=== PATIENT | female | born 1955 | race African-American/Black ===

== ENCOUNTER 2022-03-29 07:14 | Inpatient (IN) | payer MEDICARE ==
[~2022-03-29] VITALS: Ht 172.7 cm; Wt 84.4 kg
[2022-03-29 07:20] VITALS: BP_SYST 248
[2022-03-29] MEDS ORDERED: cloNIDine HCL 0.1 MG TABLET PO ONE (07:45)
[2022-03-29 07:52] LABS: BILIRUBIN,URINE NEGATIVE (NEGATIVE); BLOOD, URINE TRACE (NEGATIVE); CLARITY/URINE CLEAR (CLEAR); COLOR,URINE YELLOW (YELLOW); GLUCOSE,URINE TRACE (NEGATIVE); KETONES,URINE NEGATIVE (NEGATIVE); LEUKOCYTE ESTERASE ,URINE NEGATIVE (NEGATIVE); NITRITE, URINE NEGATIVE (NEGATIVE); PROTEIN URINE 3+ (NEGATIVE); UROBILINOGEN,URINE 0.2 (0.2-1.0)
[2022-03-29] MEDS ORDERED: ONDANSETRON HCL 4 MG/2 ML VIAL IVP ONE (08:00)
[2022-03-29 08:13] LABS: BACTERIA,URINE None Seen /HPF (None Seen)
[2022-03-29 08:23] LABS: BASOPHILS % (AUTO) 0.3 % (0.0-2.0); EOSINOPHILS # (AUTO) 0.1 K/uL (0.0-0.4); EOSINOPHILS % (AUTO) 0.8 % (0.0-4.0); HEMATOCRIT 33.2 % (36-48); HEMOGLOBIN 11.2 g/dL (12.0-16.0); LYMPHOCYTES # (AUTO) 1.2 K/uL (1.0-5.5); LYMPHOCYTES % (AUTO) 12.5 % (20.5-51.5); MEAN CORPUSCULAR HEMOGLOBIN 30 pg (27-31); MEAN CORPUSCULAR HGB CONC 34 % (32-36); MEAN CORPUSCULAR VOLUME 90 fL (79.0-98.0); MONOCYTES # (AUTO) 0.5 K/uL (0.0-1.0); NEUTROPHILS # (AUTO) 7.6 K/uL (1.8-7.7); NEUTROPHILS % (AUTO) 81.4 % (40.0-70.0); PLATELET COUNT (AUTO) 188 K/uL (130-430); RED BLOOD CELL COUNT(AUTO) 3.71 MIL/uL (4.2-6.2); RED CELL DISTRIBUTION WIDTH 19.9 % (9.0-15.0); WHITE BLOOD COUNT (AUTO) 9.4 K/uL (4.8-10.8)
[2022-03-29 08:50] LABS: ANION GAP 8 (5-15); CALCIUM 8.2 mg/dL (8.4-11.0); CHLORIDE 101 mmol/L (98-107); GLUCOSE 147 mg/dL (70-99); POTASSIUM 5.6 mmol/L (3.5-5.1); UREA NITROGEN, BLOOD 38 mg/dL (8-21)
[2022-03-29 08:57] LABS: GFR AFRICAN AMERICAN 7 mL/min (>90)
[2022-03-29 09:00] LABS: ALANINE AMINOTRANSFERASE 11 U/L (12-78); ALBUMIN 3.3 g/dL (3.4-4.8); ASPARTATE AMINOTRANSFERASE 13 U/L (10-37); TOTAL BILIRUBIN 0.5 mg/dL (0.0-1.0)
[2022-03-29 09:01] LABS: INR 0.9 (0.8-1.2); PROTHROMBIN TIME 9.9 SECS (9.5-12.5)
[2022-03-29] MEDS ORDERED: hydrALAZINE HCL 20 MG/ML VIAL IVP ONE (09:30)
[2022-03-29] MEDS ORDERED: SODIUM ZIRCONIUM CYCLOSILICATE 10 GM POWD.PACK PO ONE (09:45)
[2022-03-29] MEDS ORDERED: HYDR100T25 PO (10:00)
[2022-03-29] MEDS ORDERED: CICL6.1H5 NS (10:00)
[2022-03-29] MEDS ORDERED: LIP40 PO (10:00)
[2022-03-29] MEDS ORDERED: CALC667T6 PO (10:00)
[2022-03-29] MEDS ORDERED: TOP25 PO (10:00)
[2022-03-29] MEDS ORDERED: HYDROcodone/ACETAMIN 5-325 MG TAB (NORCO/ VICODIN) PO PRN (11:30)
[2022-03-29] MEDS ORDERED: HYDROcodone/ACETAMIN 10-325 MG TAB PO PRN (11:30)
[2022-03-29] MEDS ORDERED: ACETAMINOPHEN 325 MG TABLET PO PRN ×2 (11:30→11:45)
[2022-03-29] MEDS ORDERED: IPRATROPIUM BROM 0.5 MG/2.5 ML VIAL.NEB (ATROVENT) INH PRN (11:30)
[2022-03-29] MEDS ORDERED: ALBUTEROL SULFATE 0.083% 2.5 MG/3 ML VIAL.NEB INH PRN (11:30)
[2022-03-29] MEDS ORDERED: ONDANSETRON HCL 4 MG/2 ML VIAL IVP PRN (11:30)
[2022-03-29] MEDS ORDERED: NALOXONE HCL 0.4 MG/ML AMP (NARCAN) IVP PRN ×2 (11:30)
[2022-03-29 12:00] VITALS: BP_SYST 188
[2022-03-29] MEDS: hydrALAZINE HCL 25 MG TABLET PO SCH ×2 (14:00→21:03)
[2022-03-29] MEDS: NORMAL SALINE 5 ML DISP.SYRIN IVF SCH ×4 (14:00→21:03)
[2022-03-29] MEDS: CALCIUM ACETATE 667 MG CAP PO SCH ×2 (15:00→21:02)
[2022-03-29 15:26] VITALS: BP_SYST 165
[2022-03-29 15:30] VITALS: BP_SYST 165
[2022-03-29 19:30] VITALS: BP_SYST 188
[2022-03-29] MEDS ORDERED: TOPIRAMATE 25 MG TABLET(TOPAMAX) PO SCH (21:00)
[2022-03-29] MEDS ORDERED: CICLESONIDE NS SCH (21:00)
[2022-03-29] MEDS: TOPIRAMATE 25 MG TABLET(TOPAMAX) PO SCH (21:02)
[2022-03-29] MEDS: ATORVASTATIN 20 MG TABLET PO SCH (21:03)
[2022-03-30] VITALS (7 sets, daily range): BP systolic 168–200
[2022-03-30] MEDS ORDERED: hydrALAZINE HCL 25 MG TABLET PO ONE (00:45)
[2022-03-30] MEDS: LORazepam 2 MG/ML VIAL IVP PRN ×2 (02:53→21:55)
[2022-03-30] MEDS: NORMAL SALINE 5 ML DISP.SYRIN IVF SCH ×4 (03:42→21:21)
[2022-03-30] MEDS: hydrALAZINE HCL 25 MG TABLET PO SCH ×3 (05:57→21:21)
[2022-03-30 07:00] LABS: BASOPHILS % (AUTO) 0.4 % (0.0-2.0); EOSINOPHILS # (AUTO) 0.1 K/uL (0.0-0.4); EOSINOPHILS % (AUTO) 1.1 % (0.0-4.0); HEMATOCRIT 31.6 % (36-48); HEMOGLOBIN 10.6 g/dL (12.0-16.0); LYMPHOCYTES % (AUTO) 26.5 % (20.5-51.5); MEAN CORPUSCULAR HEMOGLOBIN 30 pg (27-31); MEAN CORPUSCULAR HGB CONC 34 % (32-36); MEAN CORPUSCULAR VOLUME 90 fL (79.0-98.0); MONOCYTES # (AUTO) 0.5 K/uL (0.0-1.0); MONOCYTES % (AUTO) 6.2 % (1.7-9.3); NEUTROPHILS # (AUTO) 4.9 K/uL (1.8-7.7); NEUTROPHILS % (AUTO) 65.8 % (40.0-70.0); PLATELET COUNT (AUTO) 201 K/uL (130-430); RED CELL DISTRIBUTION WIDTH 19.8 % (9.0-15.0); WHITE BLOOD COUNT (AUTO) 7.5 K/uL (4.8-10.8)
[2022-03-30] MEDS: TOPIRAMATE 25 MG TABLET(TOPAMAX) PO SCH ×2 (08:46→21:21)
[2022-03-30] MEDS: CALCIUM ACETATE 667 MG CAP PO SCH ×3 (08:46→21:21)
[2022-03-30 08:52] LABS: ALBUMIN 3.2 g/dL (3.4-4.8); CALCIUM 8.7 mg/dL (8.4-11.0); CREATININE 5.75 mg/dL (0.55-1.30); TOTAL BILIRUBIN 0.6 mg/dL (0.0-1.0)
[2022-03-30] MEDS ORDERED: PATIENT'S OWN EENT SCH (09:00)
[2022-03-30] MEDS: cloNIDine HCL 0.1 MG TABLET PO PRN ×2 (10:16→17:31)
[2022-03-30] MEDS ORDERED: NA PHOS 15 MM in NS 250 ML IV ONE (11:00)
[2022-03-30] MEDS ORDERED: CICL6.1H5 INH (12:44)
[2022-03-30] MEDS: PATIENT'S OWN EENT INH SCH (21:00)
[2022-03-30] MEDS: ATORVASTATIN 20 MG TABLET PO SCH (21:21)
[2022-03-30] MEDS: cloNIDine HCL 0.1 MG TABLET PO SCH (22:15)
[2022-03-31] VITALS: BP_SYST 167
[2022-03-31 04:31] LABS: BILIRUBIN,URINE NEGATIVE (NEGATIVE); BLOOD, URINE 1+ (NEGATIVE); CLARITY/URINE TURBID (CLEAR); COLOR,URINE YELLOW (YELLOW); GLUCOSE,URINE NEGATIVE (NEGATIVE); KETONES,URINE NEGATIVE (NEGATIVE); LEUKOCYTE ESTERASE ,URINE 3+ (NEGATIVE); NITRITE, URINE POSITIVE (NEGATIVE); PROTEIN URINE 3+ (NEGATIVE); UROBILINOGEN,URINE 0.2 (0.2-1.0)
[2022-03-31 04:38] LABS: WBC,URINE 80-100 /HPF (0-3)
[2022-03-31 04:39] LABS: BACTERIA,URINE MANY /HPF (None Seen); MUCUS,URINE 1+ /LPF (None Seen)
[2022-03-31] MEDS: hydrALAZINE HCL 25 MG TABLET PO SCH ×3 (05:20→22:11)
[2022-03-31] MEDS: NORMAL SALINE 5 ML DISP.SYRIN IVF SCH ×3 (05:20→22:12)
[2022-03-31 07:33] LABS: BASOPHILS % (AUTO) 0.5 % (0.0-2.0); EOSINOPHILS # (AUTO) 0.1 K/uL (0.0-0.4); EOSINOPHILS % (AUTO) 1.4 % (0.0-4.0); HEMATOCRIT 28.7 % (36-48); HEMOGLOBIN 9.7 g/dL (12.0-16.0); LYMPHOCYTES # (AUTO) 1.8 K/uL (1.0-5.5); LYMPHOCYTES % (AUTO) 26.6 % (20.5-51.5); MEAN CORPUSCULAR HEMOGLOBIN 30 pg (27-31); MEAN CORPUSCULAR HGB CONC 34 % (32-36); MEAN CORPUSCULAR VOLUME 90 fL (79.0-98.0); MONOCYTES # (AUTO) 0.4 K/uL (0.0-1.0); MONOCYTES % (AUTO) 6.5 % (1.7-9.3); NEUTROPHILS # (AUTO) 4.4 K/uL (1.8-7.7); PLATELET COUNT (AUTO) 194 K/uL (130-430); RED CELL DISTRIBUTION WIDTH 20.2 % (9.0-15.0); WHITE BLOOD COUNT (AUTO) 6.8 K/uL (4.8-10.8)
[2022-03-31 08:34] LABS: CALCIUM 8.2 mg/dL (8.4-11.0); PHOSPHORUS 2.9 mg/dL (2.7-4.5); POTASSIUM 4.1 mmol/L (3.5-5.1)
[2022-03-31] MEDS: PATIENT'S OWN EENT INH SCH ×2 (09:00→22:12)
[2022-03-31] MEDS: cloNIDine HCL 0.1 MG TABLET PO SCH ×3 (09:00→22:10)
[2022-03-31 09:05] VITALS: BP_SYST 195
[2022-03-31] MEDS: CALCIUM ACETATE 667 MG CAP PO SCH ×3 (09:10→22:11)
[2022-03-31] MEDS: TOPIRAMATE 25 MG TABLET(TOPAMAX) PO SCH ×2 (09:10→22:16)
[2022-03-31 09:24] LABS: CREATININE 7.57 mg/dL (0.55-1.30)
[2022-03-31] MEDS: cloNIDine HCL 0.1 MG TABLET PO PRN (11:20)
[2022-03-31] MEDS ORDERED: hydrALAZINE HCL 20 MG/ML VIAL IVP ONE (11:45)
[2022-03-31 12:00] VITALS: BP_SYST 187
[2022-03-31] MEDS ORDERED: NIFEDIPINE 60 MG TABLET.SA (PROCARDIA XL 60 MG) PO SCH (12:15)
[2022-03-31] MEDS ORDERED: NIFEdipine 30 MG TAB.ER.24 PO ONE (12:30)
[2022-03-31] MEDS: ATORVASTATIN 20 MG TABLET PO SCH (22:11)
[2022-04-01] VITALS: BP_SYST 179
[2022-04-01] MEDS: hydrALAZINE HCL 25 MG TABLET PO SCH ×3 (06:53→22:00)
[2022-04-01] MEDS: NORMAL SALINE 5 ML DISP.SYRIN IVF SCH ×3 (06:55→22:00)
[2022-04-01 07:40] LABS: BASOPHILS % (AUTO) 0.7 % (0.0-2.0); EOSINOPHILS # (AUTO) 0.2 K/uL (0.0-0.4); EOSINOPHILS % (AUTO) 3.5 % (0.0-4.0); HEMATOCRIT 30.1 % (36-48); HEMOGLOBIN 10.2 g/dL (12.0-16.0); LYMPHOCYTES # (AUTO) 1.3 K/uL (1.0-5.5); LYMPHOCYTES % (AUTO) 25.7 % (20.5-51.5); MEAN CORPUSCULAR HEMOGLOBIN 31 pg (27-31); MEAN CORPUSCULAR HGB CONC 34 % (32-36); MEAN CORPUSCULAR VOLUME 90 fL (79.0-98.0); MONOCYTES # (AUTO) 0.5 K/uL (0.0-1.0); MONOCYTES % (AUTO) 9.7 % (1.7-9.3); NEUTROPHILS # (AUTO) 3.1 K/uL (1.8-7.7); NEUTROPHILS % (AUTO) 60.4 % (40.0-70.0); PLATELET COUNT (AUTO) 192 K/uL (130-430); RED BLOOD CELL COUNT(AUTO) 3.34 MIL/uL (4.2-6.2); RED CELL DISTRIBUTION WIDTH 19.8 % (9.0-15.0); WHITE BLOOD COUNT (AUTO) 5.1 K/uL (4.8-10.8)
[2022-04-01 08:00] VITALS: BP_SYST 145
[2022-04-01] MEDS: NIFEdipine 30 MG TAB.ER.24 PO SCH (09:56)
[2022-04-01] MEDS: PATIENT'S OWN EENT INH SCH ×2 (09:57→21:00)
[2022-04-01] MEDS: CALCIUM ACETATE 667 MG CAP PO SCH ×3 (09:58→21:00)
[2022-04-01] MEDS: TOPIRAMATE 25 MG TABLET(TOPAMAX) PO SCH ×2 (09:58→21:00)
[2022-04-01] MEDS: cloNIDine HCL 0.1 MG TABLET PO SCH ×2 (09:58→21:00)
[2022-04-01 11:28] VITALS: BP_SYST 177
[2022-04-01] MEDS: cloNIDine HCL 0.1 MG TABLET PO PRN (12:33)
[2022-04-01 16:00] VITALS: BP_SYST 140
[2022-04-01 20:00] VITALS: BP_SYST 126
[2022-04-01 20:41] LABS: CALCIUM 8.6 mg/dL (8.4-11.0); CREATININE 6.37 mg/dL (0.55-1.30); PHOSPHORUS 2.8 mg/dL (2.7-4.5); POTASSIUM 4.2 mmol/L (3.5-5.1); TOTAL BILIRUBIN 0.5 mg/dL (0.0-1.0)
[2022-04-01] MEDS: ATORVASTATIN 20 MG TABLET PO SCH (21:00)
[2022-04-02] VITALS (7 sets, daily range): BP systolic 109–174
[2022-04-02] MEDS: NORMAL SALINE 5 ML DISP.SYRIN IVF SCH ×4 (06:00→23:00)
[2022-04-02] MEDS: PATIENT'S OWN EENT INH SCH ×2 (09:00→21:33)
[2022-04-02] MEDS: NIFEdipine 30 MG TAB.ER.24 PO SCH ×2 (09:00→11:41)
[2022-04-02] MEDS: cloNIDine HCL 0.1 MG TABLET PO SCH ×3 (09:00→21:22)
[2022-04-02 09:05] LABS: CALCIUM 8.6 mg/dL (8.4-11.0); PHOSPHORUS 2.6 mg/dL (2.7-4.5)
[2022-04-02 09:12] LABS: CREATININE 7.8 mg/dL (0.55-1.30)
[2022-04-02] MEDS: CALCIUM ACETATE 667 MG CAP PO SCH ×3 (09:57→21:24)
[2022-04-02] MEDS: TOPIRAMATE 25 MG TABLET(TOPAMAX) PO SCH ×2 (09:58→21:00)
[2022-04-02 14:32] LABS: BASOPHILS % (AUTO) 0.7 % (0.0-2.0); EOSINOPHILS # (AUTO) 0.2 K/uL (0.0-0.4); EOSINOPHILS % (AUTO) 3.3 % (0.0-4.0); HEMATOCRIT 31.3 % (36-48); HEMOGLOBIN 10.7 g/dL (12.0-16.0); LYMPHOCYTES # (AUTO) 1.5 K/uL (1.0-5.5); MEAN CORPUSCULAR HEMOGLOBIN 31 pg (27-31); MEAN CORPUSCULAR HGB CONC 34 % (32-36); MEAN CORPUSCULAR VOLUME 90 fL (79.0-98.0); MONOCYTES # (AUTO) 0.5 K/uL (0.0-1.0); PLATELET COUNT (AUTO) 224 K/uL (130-430); RED BLOOD CELL COUNT(AUTO) 3.49 MIL/uL (4.2-6.2); RED CELL DISTRIBUTION WIDTH 20.9 % (9.0-15.0); WHITE BLOOD COUNT (AUTO) 5.2 K/uL (4.8-10.8)
[2022-04-02] MEDS: cloNIDine HCL 0.1 MG TABLET PO PRN (16:22)
[2022-04-02] MEDS: ATORVASTATIN 20 MG TABLET PO SCH (21:23)
[2022-04-02] MEDS: hydrALAZINE HCL 25 MG TABLET PO SCH (21:31)
[2022-04-03] MEDS: hydrALAZINE HCL 25 MG TABLET PO SCH ×3 (05:17→21:25)
[2022-04-03] MEDS: NIFEdipine 30 MG TAB.ER.24 PO SCH (08:37)
[2022-04-03] MEDS: cloNIDine HCL 0.1 MG TABLET PO SCH ×2 (08:37→21:27)
[2022-04-03] MEDS: PATIENT'S OWN EENT INH SCH ×2 (08:37→21:30)
[2022-04-03 08:38] VITALS: BP_SYST 160
[2022-04-03] MEDS: CALCIUM ACETATE 667 MG CAP PO SCH ×3 (08:38→21:26)
[2022-04-03] MEDS: cefTRIAXone 1 GM in D5W 50 ML IV SCH (11:45)
[2022-04-03 11:46] VITALS: BP_SYST 162
[2022-04-03] MEDS: NORMAL SALINE 5 ML DISP.SYRIN IVF SCH ×2 (14:00→21:29)
[2022-04-03 16:45] VITALS: BP_SYST 175
[2022-04-03] MEDS: cloNIDine HCL 0.1 MG TABLET PO PRN (17:34)
[2022-04-03] MEDS: ATORVASTATIN 20 MG TABLET PO SCH (21:23)
[2022-04-03] MEDS: TOPIRAMATE 100 MG TABLET(Topamax) PO SCH (21:29)
[2022-04-04] VITALS: BP_SYST 143
[2022-04-04] MEDS: hydrALAZINE HCL 25 MG TABLET PO SCH ×3 (05:40→22:22)
[2022-04-04] MEDS: NORMAL SALINE 5 ML DISP.SYRIN IVF SCH ×3 (05:41→22:25)
[2022-04-04 06:00] VITALS: BP_SYST 168
[2022-04-04 07:34] LABS: BASOPHILS % (AUTO) 0.4 % (0.0-2.0); EOSINOPHILS # (AUTO) 0.2 K/uL (0.0-0.4); EOSINOPHILS % (AUTO) 3.5 % (0.0-4.0); HEMATOCRIT 31.2 % (36-48); HEMOGLOBIN 10.6 g/dL (12.0-16.0); LYMPHOCYTES # (AUTO) 1.8 K/uL (1.0-5.5); LYMPHOCYTES % (AUTO) 27.4 % (20.5-51.5); MEAN CORPUSCULAR HEMOGLOBIN 31 pg (27-31); MEAN CORPUSCULAR HGB CONC 34 % (32-36); MEAN CORPUSCULAR VOLUME 90 fL (79.0-98.0); MONOCYTES # (AUTO) 0.5 K/uL (0.0-1.0); MONOCYTES % (AUTO) 7.6 % (1.7-9.3); NEUTROPHILS # (AUTO) 4.1 K/uL (1.8-7.7); NEUTROPHILS % (AUTO) 61.1 % (40.0-70.0); PLATELET COUNT (AUTO) 201 K/uL (130-430); RED BLOOD CELL COUNT(AUTO) 3.47 MIL/uL (4.2-6.2); RED CELL DISTRIBUTION WIDTH 20.5 % (9.0-15.0); WHITE BLOOD COUNT (AUTO) 6.7 K/uL (4.8-10.8)
[2022-04-04 07:38] VITALS: BP_SYST 143
[2022-04-04 08:54] VITALS: BP_SYST 142
[2022-04-04] MEDS: NIFEdipine 30 MG TAB.ER.24 PO SCH (08:57)
[2022-04-04] MEDS: CALCIUM ACETATE 667 MG CAP PO SCH ×3 (08:57→22:22)
[2022-04-04] MEDS: cloNIDine HCL 0.1 MG TABLET PO SCH ×2 (08:58→22:23)
[2022-04-04] MEDS: TOPIRAMATE 100 MG TABLET(Topamax) PO SCH ×2 (08:58→21:00)
[2022-04-04] MEDS: PATIENT'S OWN EENT INH SCH ×2 (09:03→22:26)
[2022-04-04] MEDS ORDERED: CLONIDINE HCL PO (09:41)
[2022-04-04] MEDS ORDERED: NIFEdipine PO (09:41)
[2022-04-04 09:44] LABS: CALCIUM 8.6 mg/dL (8.4-11.0); POTASSIUM 4.4 mmol/L (3.5-5.1)
[2022-04-04 09:50] LABS: CREATININE 7.86 mg/dL (0.55-1.30)
[2022-04-04 09:51] LABS: ALBUMIN 2.8 g/dL (3.4-4.8); PHOSPHORUS 2.8 mg/dL (2.7-4.5); TOTAL BILIRUBIN 0.4 mg/dL (0.0-1.0)
[2022-04-04 11:24] LABS: ERYTHROCYTE SEDIMENTATION RATE 49 MM/HR (0-20)
[2022-04-04] MEDS: cefTRIAXone 1 GM in D5W 50 ML IV SCH (11:32)
[2022-04-04 17:07] VITALS: BP_SYST 151
[2022-04-04 20:00] VITALS: BP_SYST 167
[2022-04-04] MEDS: ATORVASTATIN 20 MG TABLET PO SCH (22:24)
[2022-04-05] VITALS: BP_SYST 136
[2022-04-05] MEDS: hydrALAZINE HCL 25 MG TABLET PO SCH ×2 (06:11→18:01)
[2022-04-05] MEDS: NORMAL SALINE 5 ML DISP.SYRIN IVF SCH ×2 (06:12→14:00)
[2022-04-05 06:47] LABS: BASOPHILS % (AUTO) 0.3 % (0.0-2.0); EOSINOPHILS # (AUTO) 0.2 K/uL (0.0-0.4); EOSINOPHILS % (AUTO) 2.2 % (0.0-4.0); HEMATOCRIT 32.5 % (36-48); LYMPHOCYTES % (AUTO) 27.7 % (20.5-51.5); MEAN CORPUSCULAR HEMOGLOBIN 31 pg (27-31); MEAN CORPUSCULAR HGB CONC 34 % (32-36); MEAN CORPUSCULAR VOLUME 90 fL (79.0-98.0); MONOCYTES # (AUTO) 0.6 K/uL (0.0-1.0); MONOCYTES % (AUTO) 8.2 % (1.7-9.3); NEUTROPHILS # (AUTO) 4.4 K/uL (1.8-7.7); NEUTROPHILS % (AUTO) 61.6 % (40.0-70.0); PLATELET COUNT (AUTO) 198 K/uL (130-430); RED BLOOD CELL COUNT(AUTO) 3.62 MIL/uL (4.2-6.2); RED CELL DISTRIBUTION WIDTH 20.5 % (9.0-15.0); WHITE BLOOD COUNT (AUTO) 7.1 K/uL (4.8-10.8)
[2022-04-05 07:09] LABS: C-REACTIVE PROTEIN QUANT 2.4 mg/dL (0-0.5); CALCIUM 8.4 mg/dL (8.4-11.0); PHOSPHORUS 2.8 mg/dL (2.7-4.5); POTASSIUM 4.2 mmol/L (3.5-5.1)
[2022-04-05 07:32] LABS: ERYTHROCYTE SEDIMENTATION RATE 54 MM/HR (0-20)
[2022-04-05 08:00] VITALS: BP_SYST 127
[2022-04-05 08:23] LABS: CREATININE 7.54 mg/dL (0.55-1.30)
[2022-04-05] MEDS: cloNIDine HCL 0.1 MG TABLET PO SCH (09:00)
[2022-04-05] MEDS: NIFEdipine 30 MG TAB.ER.24 PO SCH (09:00)
[2022-04-05] MEDS: TOPIRAMATE 100 MG TABLET(Topamax) PO SCH (09:37)
[2022-04-05] MEDS: CALCIUM ACETATE 667 MG CAP PO SCH ×2 (09:37→18:00)
[2022-04-05] MEDS: PATIENT'S OWN EENT INH SCH (09:38)
[2022-04-05] MEDS ORDERED: CLONIDINE HCL PO (09:38)
[2022-04-05] MEDS ORDERED: NIFEdipine PO (09:38)
[2022-04-05 11:47] VITALS: BP_SYST 139
[2022-04-05] MEDS: cefTRIAXone 1 GM in D5W 50 ML IV SCH (12:18)
[2022-04-05 17:19] VITALS: BP_SYST 133
== END 2022-04-05 18:25 | disposition home health service (06) | DRG 871 ==
LOC: SED 07:14 → STU 10:12
PROVIDERS: ADMIT Preventive Medicine Preventive Medicine/Occupational Environmental Medicine; ATTEND Preventive Medicine Preventive Medicine/Occupational Environmental Medicine
DX: A41.9 Sepsis, unspecified organism (principal); N18.6 End stage renal disease; I12.0 Hypertensive chronic kidney disease with stage 5 chronic kidney disease or end stage renal disease; E87.1 Hypo-osmolality and hyponatremia; G40.209 Localization-related (focal) (partial) symptomatic epilepsy and epileptic syndromes with complex partial seizures, not intractable, without status epilepticus; N39.0 Urinary tract infection, site not specified; D63.8 Anemia in other chronic diseases classified elsewhere; E83.51 Hypocalcemia; E87.5 Hyperkalemia; E88.09 Other disorders of plasma-protein metabolism, not elsewhere classified; E66.9 Obesity, unspecified; E83.52 Hypercalcemia; Z20.822 Contact with and (suspected) exposure to COVID-19; B95.4 Other streptococcus as the cause of diseases classified elsewhere; E83.39 Other disorders of phosphorus metabolism; R53.81 Other malaise; Z99.2 Dependence on renal dialysis; Z68.28 Body mass index [BMI] 28.0-28.9, adult
CPT/HCPCS: 36415; 70450-TC; 71045; 76376; 80048; 80053; 81000; 82140; 82962; 83605; 83735; 84100; 84484; 85025; 85610-TC; 85651-TC; 85730-TC; 86140; 87040; 87081; 87086; 90935; 90937; 93005; 93306; 94760; 96374; 96375; 97110-GP; 97116-GP; 97530-GP; 99291; G0378; J0360; J0696; J2060; J2405; J7030; J7050; J7060